=== PATIENT | male | born 1990 | race Caucasian/White ===

== ENCOUNTER 2021-04-26 13:31 | Emergency (ER) | payer OTHER ==
[~2021-04-26] VITALS: Ht 177.8 cm; Wt 95.3 kg
== END 2021-04-26 22:51 | disposition home or self-care (01) ==
LOC: ER 13:31
DX: R06.02 Shortness of breath (principal); T75.1XXA Unspecified effects of drowning and nonfatal submersion, initial encounter; W67.XXXA Accidental drowning and submersion while in swimming-pool, initial encounter; Y93.89 Activity, other specified; Y92.59 Other trade areas as the place of occurrence of the external cause; Y99.8 Other external cause status